=== PATIENT | female | born 1985 | race American Indian/Alaskan Native ===

== ENCOUNTER 2020-03-08 21:10 | Emergency (ER) | payer SELFPAY ==
[2020-03-08 22:29] LABS: Basophils # (Auto) 0.1 K/mm3 (0.0-0.1); Basophils % (Auto) 0.9 % (0.0-1.8); Eosinophils # (Auto) 0.6 K/mm3 (0.0-0.4); Eosinophils % (Auto) 7.4 % (0.0-4.3); Hematocrit 25.4 % (30.3-42.9); Hemoglobin 7.7 gm/dl (10.1-14.3); Lymphocytes # (Auto) 3.2 K/mm3 (1.2-5.4); Lymphocytes % (Auto) 37.6 % (13.4-35.0); Mean Corpuscular HGB Conc 30 % (30-34); Monocytes # (Auto) 0.5 K/mm3 (0.0-0.8); Monocytes % (Auto) 5.4 % (0.0-7.3); Platelet Count 212 K/mm3 (140-440); Red Blood Count 4.23 M/mm3 (3.65-5.03)
[2020-03-08 22:50] LABS: Mean Corpuscular Volume 60 fl (79-97); Red Cell Distribution Width 21.4 % (13.2-15.2)
[2020-03-08 22:52] LABS: Alanine Aminotransferase 7 units/L (7-56); Albumin 4.1 g/dL (3.9-5); Blood Urea Nitrogen 14 mg/dL (7-17); Calcium 9.2 mg/dL (8.4-10.2); Hemolysis Index 2
[2020-03-08 22:57] LABS: BUN/Creatinine Ratio 23
[2020-03-09 00:59] LABS: Bacteria,Urine 2+ /HPF (Negative); Bilirubin,Urine NEG (Negative); Blood,Urine NEG (Negative); Calcium Oxalate Crystals,Urine FEW; Color,Urine Yellow (Yellow); Mucus,Urine 1+ /HPF; Protein,Urine <15 mg/dL mg/dL (Negative); Urobilinogen,Urine < 2.0 mg/dL (<2.0)
[2020-03-09] MEDS ORDERED: IBUPROFEN 600 MG TAB PO ONE (02:22)
--- NOTE | 2020-03-09 02:28 | Emergency Department Report ---
ED Female HPI - General Chief complaint: Abdominal Pain Stated complaint: ABDOMINAL PAIN Time Seen by Provider: 03/09/20 01:54 Source: patient Mode of arrival: Ambulatory Limitations: No Limitations - History of Present Illness Initial comments: The patient was evaluated in the emergency department for symptoms described in the history of present illness. He/she was evaluated in the context of the global COVID-19 pandemic, which necessitated consideration that the patient might be at risk for infection with the virus that causes COVID-19. Insti tutional protocols and algorithms that pertain to the evaluation of patients at risk for COVID-19 are in a state of rapid change based on information released by regulatory bodies including the CDC and federal and state organizations. These policies and algorithms were followed during the patient's care in the emergency department. Please note that these policies, procedures and recommendations changed on a rapid basis. 34-year-old -[place] female presents to the emergency room for a 2-day history of left abdominal pain. Patient states she feels that her ovary cyst is swollen. Patient feels that is worse when she ovulates. Her last known period 02/01/2020. Patient states that she took Tylenol last night but no relief. She says that the pain is sharp and intermittent. She denies any fever chills no nausea no vomiting no vaginal discharge or vaginal bleeding. She states her pain does not feel like a torsion. She does suffer from anemia. Complaint: pelvic pain Onset/Timin -: days(s) Location: LLQ Radiation: non-radiating Severity: moderate Severity scale (0 -10): 8 Quality: sharp Consistency: intermittent Improves with: none Worsens with: none Are you Now?: No Last Menstrual Period: 03/03/20 EDC: 12/08/20 Associated Symptoms: denies other symptoms - Related Data Sexually active: Yes : 0 Previous Rx's Medication Instructions Recorded Last Taken Type Ibuprofen [Motrin 600 MG tab] 600 mg PO Q8H PRN #21 tablet 03/09/20 Unknown Rx Allergies Allergy/AdvReac Type Severity Reaction Status Date / Time No Known Allergies Allergy Unverified 03/08/20 21:51 ED Review of Systems ROS: Stated complaint: ABDOMINAL PAIN Other details as noted in HPI Comment: All other systems reviewed and negative ED Past Medical Hx - Past Medical History Previous Medical History?: Yes Hx Asthma: Yes Additional medical history: Bilateral Ovarian Cysts. Fibroids - Surgical History Past Surgical History?: No - Social History Smoking Status: Current Every Day Smoker Substance Use Type: Marijuana - Medications Home Medications: Home Medications Medication Instructions Recorded Confirmed Last Taken Type Ibuprofen [Motrin 600 MG tab] 600 mg PO Q8H PRN #21 tablet 03/09/20 Unknown Rx ED Physical Exam - General Limitations: No Limitations General appearance: alert, in no apparent distress - Head Head exam: Present: atraumatic, normocephalic - Eye Eye exam: Present: normal appearance - ENT ENT exam: Present: mucous membranes moist - Neck Neck exam: Present: normal inspection - Respiratory Respiratory exam: Present: normal lung sounds bilaterally. Absent: respiratory distress - Cardiovascular Cardiovascular Exam: Present: regular rate, normal rhythm. Absent: systolic murmur, diastolic murmur, rubs, gallop - GI/Abdominal GI/Abdominal exam: Present: soft, tenderness (Left lower quadrant), normal bowel sounds. Absent: distended - Extremities Exam Extremities exam: Present: normal inspection, full ROM - Back Exam Back exam: Present: normal inspection - Neurological Exam Neurological exam: Present: alert, oriented X3 - Psychiatric Psychiatric exam: Present: normal affect, normal mood - Skin Skin exam: Present: warm, dry, intact, normal color. Absent: rash ED Course Vital Signs 03/08/20 21:37 Temperature 98.1 F Pulse Rate 79 Respiratory 16 Rate Blood Pressure 107/70 O2 Sat by Pulse 99 Oximetry ED Medical Decision Making - Lab Data Result diagrams: 03/08/20 22:14 03/08/20 22:14 - Medical Decision Making 34-year-old -[place] female presents to the emergency room for a 2-day history of left abdominal pain. Patient states she feels that her ovary cyst is swollen. Patient feels that is worse when she ovulates. Her last known period 02/01/2020. Patient states that she took Tylenol last night but no relief. She says that the pain is sharp and intermittent. She denies any fever chills no nausea no vomiting no vaginal discharge or vaginal bleeding. She states her pain does not feel like a torsion. She does suffer from anemia. Patient will be given ibuprofen 600 mg for pain management. Patient will be discharged home on ibuprofen 600 mg every 6-8 hours as needed. Urinalysis is no concerns for urinary tract infection labs shows that she has anemia but stable. Critical care attestation.: If time is entered above; I have spent that time in minutes in the direct care of this critically ill patient, excluding procedure time. ED Disposition Clinical Impression: Left lower quadrant pain, History of ovarian cyst, Fibroids Disposition: TO HOME OR SELFCARE Is pt being admited?: No Does the pt Need Aspirin: No Condition: Stable Instructions: Abdominal Pain (ED) Additional Instructions: Take pain medication as needed. Follow-up with [facility]. If your symptoms gets worse please return back to the emergency room immediately. Prescriptions: Ibuprofen [Motrin 600 MG tab] 600 mg PO Q8H PRN #21 tablet PRN Reason: Pain , Severe (7-10) Referrals: PRIMARY CARE, [Primary Care Provider] - 3-5 Days [facility] [Provider Group] - 3-5 Days Forms: Work/School Release Form(ED)
[2020-03-09 04:24] VITALS: BP 114/72
== END 2020-03-09 03:45 | disposition home or self-care (01) ==
LOC: ED 21:10
DX: N83.202 Unspecified ovarian cyst, left side (principal); D21.9 Benign neoplasm of connective and other soft tissue, unspecified; J45.909 Unspecified asthma, uncomplicated; F17.200 Nicotine dependence, unspecified, uncomplicated; F12.10 Cannabis abuse, uncomplicated; Z79.1 Long term (current) use of non-steroidal anti-inflammatories (NSAID)
CPT/HCPCS: 36415; 80053; 81001; 83690; 84703; 85025; 99283